=== PATIENT | male | born 1985 | race Caucasian/White ===

== ENCOUNTER 2022-05-12 16:02 | Emergency (ER) | payer OTHER ==
[~2022-05-12] VITALS: Ht 162.6 cm; Wt 59.0 kg
--- NOTE | 2022-05-12 16:47 | NUR ---
GRABIEL MERCEDES AT BEDSIDE FOR EVAL.
[2022-05-12] MEDS ORDERED: LORAZEPAM 1 MG TABLET PO ONE (17:30)
[2022-05-12] MEDS ORDERED: CHLORDIAZEPOXIDE HCL 25 MG CAPSULE PO ONE (17:30)
[2022-05-12] MEDS ORDERED: TDAP [DIPH/PERTUSSIS/TET] 0.5 ML VIAL IM ONE ×2 (17:30→18:11)
[2022-05-12 17:32] LABS: BASOPHILS % (AUTO) 0.1 % (0.0-2.0); HEMATOCRIT 39 % (39-51); HEMOGLOBIN 13.2 g/dL (13.5-17.5); LYMPHOCYTES # (AUTO) 0.9 K/uL (0.8-4.8); LYMPHOCYTES % (AUTO) 4.6 % (20.0-44.0); MEAN CORPUSCULAR HGB CONC 33 g/dl (31.0-36.0); MEAN CORPUSCULAR VOLUME 81 fL (80-96); MONOCYTES # (AUTO) 1.5 K/uL (0.1-1.30); MONOCYTES % (AUTO) 8.1 % (2.0-12.0); NEUTROPHILS # (AUTO) 16.7 K/uL (1.8-8.9); NEUTROPHILS % (AUTO) 87.2 % (43.0-81.0); PLATELET COUNT (AUTO) 289 K/uL (150-450); RED BLOOD CELL COUNT(AUTO) 4.85 MIL/uL (4.5-6.0); WHITE BLOOD COUNT (AUTO) 19.2 K/uL (4.3-11.0)
[2022-05-12 18:10] LABS: CALCIUM, SERUM 8.5 mg/dL (8.5-10.1); CARBON DIOXIDE 24 mmol/L (21-32); CHLORIDE 103 mmol/L (98-107); CREATININE 1.1 mg/dL (0.6-1.3); GLUCOSE 176 mg/dL (74-106); POTASSIUM 3.3 mmol/L (3.5-5.1); SODIUM SERUM 141 mmol/L (136-145); UREA NITROGEN, BLOOD 19 mg/dL (7-18)
[2022-05-12] MEDS ORDERED: LORAZEPAM 1 MG TABLET ONE (18:11)
[2022-05-12] MEDS ORDERED: CHLORDIAZEPOXIDE HCL 25 MG CAPSULE ONE (18:11)
[2022-05-12 18:15] LABS: ALANINE AMINOTRANSFERASE 45 U/L (12-78); ALBUMIN 4.2 g/dL (3.4-5.0); ALCOHOL, BLOOD < 3 mg/dL (0-0); ALKALINE PHOSPHATASE 138 U/L (46-116); ASPARTATE AMINOTRANSFERASE 34 U/L (15-37); BILIRUBIN,DIRECT 0.4 mg/dL (0.0-0.2); BILIRUBIN,TOTAL 1.9 mg/dL (0.2-1.0)
--- NOTE | 2022-05-12 18:16 | NUR ---
RADIOLOGY AT BEDSIDE FOR RIB XRAY.
[2022-05-12 18:17] LABS: ACETAMINOPHEN < 2 ug/ml (10-30)
--- NOTE | 2022-05-12 19:39 | NUR ---
URINE COLLECTED SENT TO LAB
[2022-05-12 19:58] LABS: BILIRUBIN,URINE NEGATIVE (NEGATIVE); COLOR,URINE YELLOW (YELLOW); LEUKOCYTE ESTERASE ,URINE NEGATIVE (NEGATIVE); NITRITE, URINE NEGATIVE (NEGATIVE); PROTEIN,URINE NEGATIVE (NEGATIVE); UGLUCOSE NEGATIVE (NEGATIVE); UROBILINOGEN,URINE 0.2 EU/dL (0.2)
[2022-05-12] MEDS ORDERED: IBUPROFEN 600 MG TABLET PO ONE (20:30)
[2022-05-12] MEDS ORDERED: POTASSIUM CHLORIDE 20 MEQ TAB.PRT.SR PO ONE ×2 (20:30→21:59)
--- NOTE | 2022-05-12 20:45 | NUR ---
MOTHER [phone]
[2022-05-12] MEDS ORDERED: IBUPROFEN 600 MG TABLET ONE (21:58)
--- NOTE | 2022-05-12 22:41 | NUR ---
[facility]- CRISIS SETTLEMENT TECHNICIAN PAGED. ETA [phone]
[2022-05-12] MEDS ORDERED: diphenhydrAMINE HCL 50 MG/ML VIAL ONE (22:50)
[2022-05-12] MEDS ORDERED: OLANZAPINE 10 MG VIAL IM ONE ×2 (22:50→23:00)
[2022-05-12] MEDS ORDERED: diphenhydrAMINE HCL 50 MG/ML VIAL IM ONE (23:00)
--- NOTE | 2022-05-13 00:14 | NUR ---
[facility]- CRISIS PRESSER FIRST AT BEDSIDE
[2022-05-13] MEDS ORDERED: HALOPERIDOL LACTATE INJ 5 MG/ML VIAL IM ONE (02:00)
[2022-05-13] MEDS ORDERED: MIDAZOLAM HCL 2 MG/2ML VIAL IM ONE (02:00)
[2022-05-13] MEDS ORDERED: diphenhydrAMINE HCL 50 MG/ML VIAL IM ONE (02:00)
[2022-05-13] MEDS ORDERED: diphenhydrAMINE HCL 50 MG/ML VIAL ONE (02:01)
[2022-05-13] MEDS ORDERED: HALOPERIDOL LACTATE INJ 5 MG/ML VIAL ONE (02:01)
[2022-05-13] MEDS ORDERED: MIDAZOLAM HCL 5 MG/5ML VIAL ONE (02:01)
--- NOTE | 2022-05-13 10:23 | NUR ---
PSYCH PLACEMENT SW faxed clinicals for psych placement to the following locations: [facility] (f: [phone]; p:[phone]) [facility] (f: [phone]; p: )
--- NOTE | 2022-05-13 13:54 | NUR ---
PSYCH PLACEMENT SW followed up with [facility] and [facility] regarding clinical packet received for possible placement. [facility] received packet and will have evaluated by nursing for possible placement. Charge nurse at [place] [facility] was out and SW instructed to call back in 15 minutes regarding possible beds open.
--- NOTE | 2022-05-13 14:30 | NUR ---
PSYCH PLACEMENT SW followed up with charge nurse, Sergio, at [facility] regarding clinical packet sent for placement. Nurse not available. Voicemail taken with SW call back information. Kaelagin can be reached at [phone].
--- NOTE | 2022-05-13 14:41 | NUR ---
ELDON followed up on packets sent to [facility] and [facility]. [facility] received complete packet and sent to nursing for review. Voicemail left with charge nurse, Sergio, at [facility] for response on open beds. ELDON sent another clinical packet to [place] with no response yet. [facility] faxed a facesheet to [facility] to request a psychiatric consult. Patient to be seen tomorrow morning by Dr. Garcia.
--- NOTE | 2022-05-13 15:05 | NUR ---
Pt. was accepted to [facility][[id number] [address] [facility] [id number]] UNIT 1 ROOM #1007B under the care of Dr. Nova.Delbert to be arranged now. Please call Intake at [phone] to notify them of patient's ETA. Nurse to nurse report to be called in at 3:45pm at [phone]. SW notified Aleksander Pineda.
--- NOTE | 2022-05-13 15:07 | NUR ---
[facility] CALLED FOR TRANSPORT ETA 120 MINS PER YULISA.
[2022-05-13 17:10] VITALS: BP 120/70
--- NOTE | 2022-05-13 17:45 | NUR ---
REPORT GIVEN TO CARRIE MOYA AT [facility] [place]. PT TRANSPORTED IN STABLE CONDITION.
== END 2022-05-13 17:49 ==
LOC: ER 16:06
DX: S02.2XXB Fracture of nasal bones, initial encounter for open fracture (principal); Y04.8XXA Assault by other bodily force, initial encounter; Y92.480 Sidewalk as the place of occurrence of the external cause; S20.20XA Contusion of thorax, unspecified, initial encounter; W18.30XA Fall on same level, unspecified, initial encounter; Z59.00 Homelessness unspecified; F19.10 Other psychoactive substance abuse, uncomplicated; E86.0 Dehydration; R00.0 Tachycardia, unspecified; D72.829 Elevated white blood cell count, unspecified; E87.6 Hypokalemia; S00.03XA Contusion of scalp, initial encounter; L55.0 Sunburn of first degree; R04.0 Epistaxis; S30.1XXA Contusion of abdominal wall, initial encounter; Z20.822 Contact with and (suspected) exposure to COVID-19; F23 Brief psychotic disorder
CPT/HCPCS: 99285; 96372 ×2; 90471; 90715; 71100; 70450; 70486; 85025; 80048; 80076; 81003; 36415; 87426; 80143; 80320; 80307; J1200 ×2; J3490; C9803; J1630; J2250; G0480